=== PATIENT | female | born 1990 | race Caucasian/White ===

== ENCOUNTER → 2016-08-04 | Outpatient (CLI) | payer OTHER ==
[2016-08-04 14:10] LABS: MEAN CORPUSCULAR HGB CONC 34.9 g/dl (32.0-36.5); MEAN CORPUSCULAR VOLUME 88.8 fl (80.0-96.0); RED CELL DISTRIBUTION WIDTH 13.2 % (11.5-14.5); WHITE BLOOD COUNT 10.6 K/mm3 (4.0-10.0)
== END ==
LOC: M LAB 12:05
PROVIDERS: ATTEND Advanced Practice Midwife
DX: Z34.82 Encounter for supervision of other normal pregnancy, second trimester (principal)

== ENCOUNTER → 2016-08-10 | Outpatient (CLI) | payer OTHER | LOC: M LAB 08:09 | PROVIDERS: ATTEND Advanced Practice Midwife | DX: R73.02 Impaired glucose tolerance (oral) (principal) ==

== ENCOUNTER → 2016-10-20 | Outpatient (REF) | payer OTHER | LOC: M LAB REF 17:04 | PROVIDERS: ATTEND Advanced Practice Midwife | DX: Z34.83 Encounter for supervision of other normal pregnancy, third trimester (principal) ==

== ENCOUNTER 2016-11-14 20:07 | Inpatient (IN) | payer OTHER ==
[~2016-11-14] VITALS: Ht 157.5 cm; Wt 87.0 kg
[2016-11-14] VITALS (7 sets, daily range): BP systolic 130–144; BP diastolic 79–94
[2016-11-14] MEDS ORDERED: LR 1,000 ML IV SCH (21:05)
[2016-11-14 21:41] LABS: MEAN CORPUSCULAR HGB CONC 34.4 g/dl (32.0-36.5); MEAN CORPUSCULAR VOLUME 87.1 fl (80.0-96.0); RED CELL DISTRIBUTION WIDTH 13.8 % (11.5-14.5); WHITE BLOOD COUNT 15.8 K/mm3 (4.0-10.0)
[2016-11-14 22:32] LABS: ALT/SGPT 27 U/L (12-78); AST/SGOT 18 U/L (15-37); BILIRUBIN,TOTAL 0.2 MG/DL (0.2-1.0); CREATININE FOR GFR 0.66 MG/DL (0.55-1.02); GLOMERULAR FILTRATION RATE > 60.0 (>60); URIC ACID 6.2 MG/DL (2.6-6.0)
[2016-11-14] MEDS ORDERED: BUTORPHANOL 2 MG/ML INJ (J0595) As Ordered ONE (23:10)
[2016-11-14] MEDS ORDERED: BUTORPHANOL 2 MG/ML INJ (J0595) IV ONE (23:15)
[2016-11-14] MEDS ORDERED: PROMETHAZINE INJ 25 MG/ML VIAL (J2550) IV ONE (23:15)
[2016-11-15] VITALS (48 sets, daily range): BP systolic 108–147; BP diastolic 55–95
[2016-11-15] MEDS ORDERED: FENTANYL 2MCG/ML ROPIVACAINE 0.2% IN 0.9% NACL 200ML IVBAG As Ordered ONE (00:19)
[2016-11-15] MEDS ORDERED: diphenhydrAMINE INJ 50MG/ML VIAL (J1200) IV PRN (01:12)
[2016-11-15] MEDS ORDERED: ePHEDrine SULFATE 25 MG/5 ML(5MG/ML) SYRINGE IV PRN (01:12)
[2016-11-15] MEDS ORDERED: FENTANYL/ROPIVACAINE/NACL BAG 200 ML EPIDURAL SCH (01:12)
[2016-11-15] MEDS ORDERED: NALOXONE INJ 0.4 MG/1 ML VIAL (J2310) IV PRN (01:12)
[2016-11-15] MEDS ORDERED: LACTATED RINGER'S 1000 ML IV PRN (01:12)
[2016-11-15] MEDS ORDERED: ONDANSETRON 4MG/2ML VIAL (J2405) IV PRN (01:12)
[2016-11-15] MEDS ORDERED: EPIDURAL COMMENT XX SCH (01:12)
[2016-11-15] MEDS ORDERED: EPIDURAL/PCA KEYS XX PRN (01:12)
[2016-11-15] MEDS ORDERED: REFRIGERATOR IV KEYS XX PRN (01:12)
[2016-11-15] MEDS ORDERED: OXYTOCIN 30 UNITS IN 0.9% NaCl 500ML IV BAG (J2590) As Ordered ONE (01:59)
--- NOTE | 2016-11-15 05:53 | HPE ---
DATE OF ADMISSION: 11/14/2016 REASON FOR ADMISSION: Labor. HISTORY OF PRESENT ILLNESS: Mrs. Cadena is a 26-year-old 1 who presents at 39 weeks and 3 days estimated gestational age by last menstrual period, confirmed by first-trimester ultrasound, with complaints of contractions. She reports contractions throughout the day, but have now increased in intensity and frequency. She was examined earlier today where she was found on exam to be 1 cm dilated, 80% effaced, -2 station. She was sent home and she rested, at which time she returned after contractions became less than five minutes apart for longer than two hours. She reports active movements. Denies any vaginal bleeding or leakage of fluid. Her course has been unremarkable. She initiated care in her first trimester and has been appropriate throughout. PAST MEDICAL HISTORY: None. PAST SURGICAL HISTORY: None. PAST OBSTETRICAL HISTORY: 1. MEDICATIONS: vitamins. ALLERGIES: She has no known drug allergies. SOCIAL HISTORY: Denies any alcohol, tobacco or drug use during her . PHYSICAL EXAMINATION: She has mildly elevated blood pressures, 140s over 90s, with serial repeats. She is afebrile. She has category one heart rate tracing with regular pattern contractions. GENERAL APPEARANCE: No acute distress. Appears uncomfortable with contractions. LUNGS: Clear to auscultation bilaterally. CARDIOVASCULAR: Heart regular rate and rhythm. ABDOMEN: Gravid, nontender. Estimated weight (EFW) 3600 grams. CERVICAL EXAM: She was 4 cm dilated, 90% effaced, -1 station. NEUROLOGIC: She was grossly intact. LABORATORY DATA: Her blood type is A positive. Antibody screen is negative. Rubella immune. RPR nonreactive. Hepatitis surface antigen is negative. HIV is negative. Hepatitis C is nonreactive. Chlamydia and gonorrhea screens negative. She had an elevated one-hour Glucola with a normal glucose tolerance test. She is GBS negative. ASSESSMENT: 1. This patient is a 26-year-old one at 39 weeks 3 days estimated gestational age by last menstrual period confirmed by first-trimester ultrasound in active labor. 2. Reassuring status. 3. Elevated blood pressures, concerning for gestational hypertension versus preeclampsia. PLAN: 1. Admit to labor and delivery. Complete blood count (CBC), rapid plasma reagin (RPR), type and screen. Preeclamptic panel. 2. The patient has been thoroughly counseled in regards to her diagnosis. I discussed admission as well as augmentation of her labor. I have also v erbally consented her for emergency surgery, blood products, anesthesia. She desires to proceed with admission. 3. The patient is a good candidate for an epidural. [place]
[2016-11-15] MEDS ORDERED: OXYTOCIN DRIP 30 UNITS in APPROPRIATE DILUENT 1 EA IV SCH (06:04)
[2016-11-15] MEDS ORDERED: RHOGAM 300 MCG (1500 IU) INJ (J2790) IM SCH (06:15)
[2016-11-15] MEDS ORDERED: IBUPROFEN 800 MG TAB PO PRN (06:15)
[2016-11-15] MEDS ORDERED: MEASLES,MUMPS,RUBELLA VACCINE INJ (MMR-II) (90707) SC SCH (06:15)
[2016-11-15] MEDS ORDERED: DIBUCAINE 1% OINTMENT 30GM TOP PRN (06:15)
[2016-11-15] MEDS ORDERED: DOCUSATE SODIUM 100 MG CAP PO PRN (06:15)
[2016-11-15] MEDS ORDERED: MOM 30ML SUSPENSION UDC PO PRN (06:15)
[2016-11-15] MEDS ORDERED: ANUSOL HC CREAM 30GM TOP PRN (06:15)
[2016-11-15] MEDS ORDERED: ACETAMINOPHEN 500 MG TAB PO PRN (06:15)
[2016-11-15] MEDS ORDERED: METHYLERGONOVINE MALEATE 0.2 MG TAB PO PRN (06:15)
--- NOTE | 2016-11-15 06:27 | DN ---
DATE: 11/15/2016 TIME OF : 0535. GENDER: Female. SCORES: 9 and 9. WEIGHT: 3300 grams or 7 pounds 4 ounces. ANESTHESIA: Epidural. LACERATIONS: First-degree midline laceration. COUNTS: Five laparotomy sponges accounted for prior to an after delivery. One sharp removed from the delivery field. DELIVERY NOTE: On November 15, 2016, Mrs. Cadena, a 26-year-old 1, now para 1, had a spontaneous vaginal delivery of a live-born female , scores of 9 and 9. Weight was 7 pounds 4 ounces or 3300 grams. Head was delivered occiput anterior (OA), followed by delivery of right anterior shoulder, left posterior shoulder and corpus. Infant was then handed to mom with a good cry. Cord was clamped times two, was cut by the father of the baby under my direction. Cord blood was obtained. Placenta was drained and delivered grossly intact. A premixed bag of 500 mL of normal saline with 30 units of Pitocin was then bolused, along with uterine massage. The uterus was firm. On inspection, there was a first-degree midline laceration which was repaired with 3-0 Vicryl Rapide. On re-inspection, cervix, vagina and perineum were grossly intact and hemostatic. Mom and baby to recovery in stable condition. The couple has decided to name their daughter [place].
[2016-11-15] MEDS: PRENATAL VITAMIN TAB PO SCH (08:42)
[2016-11-16 06:17] VITALS: BP 122/79
[2016-11-16] MEDS: PRENATAL VITAMIN TAB PO SCH (08:28)
[2016-11-16 18:00] VITALS: BP 126/85
[2016-11-17 06:21] VITALS: BP 123/87
[2016-11-17] MEDS: PRENATAL VITAMIN TAB PO SCH (08:02)
[2016-11-17] MEDS ORDERED: ACET50TA PO (08:08)
[2016-11-17] MEDS ORDERED: IBUP-1114 PO (08:08)
[2016-11-17] MEDS ORDERED: PRENTAB9 PO (08:08)
== END 2016-11-17 10:30 | disposition home or self-care (01) | DRG 775 ==
LOC: M LDO 20:07 → M LDI 21:24 → M OBS 11-15 09:13
PROVIDERS: ADMIT Obstetrics & Gynecology; ATTEND Obstetrics & Gynecology
PROC: 10E0XZZ Delivery of Products of Conception, External Approach (ICD-10-PCS; principal; 2016-11-15)
PROC: 0HQ9XZZ Repair Perineum Skin, External Approach (ICD-10-PCS; 2016-11-15)
DX: O13.4 Gestational [pregnancy-induced] hypertension without significant proteinuria, complicating childbirth (principal); Z37.0 Single live birth; Z3A.39 39 weeks gestation of pregnancy; Z79.899 Other long term (current) drug therapy; O70.0 First degree perineal laceration during delivery

== ENCOUNTER → 2017-09-03 | Outpatient (REF) | payer OTHER ==
[2017-09-03 11:29] LABS: BASO % 0.4 % (0.0-1.0); EOS # 0.1 10^3/uL (0.0-0.50); EOS % 2.5 % (0.0-3.0); HEMATOCRIT 39.3 % (36.0-47.0); HEMOGLOBIN 13.5 g/dl (12.0-15.5); IMMATURE GRANULOCYTE % 0.2 % (0-3.0); LYMPH % 36.3 % (24.0-44.0); MEAN CORPUSCULAR HEMOGLOBIN 29.4 pg (27.0-33.0); MEAN CORPUSCULAR HGB CONC 34.4 g/dl (32.0-36.5); MEAN CORPUSCULAR VOLUME 85.6 fl (80.0-96.0); MONO # 0.4 10^3/uL (0.0-0.8); MONO % 7.2 % (0.0-5.0); NEUTROPHILS % 53.4 % (36.0-66.0); PLATELET COUNT, AUTOMATED 266 10^3/uL (150-450); RED BLOOD COUNT 4.59 10^6/uL (4.00-5.40); RED CELL DISTRIBUTION WIDTH 12.9 % (11.5-14.5); WHITE BLOOD COUNT 5.6 10^3/uL (4.0-10.0)
[2017-09-03 11:48] LABS: FOLLICLE STIMULATING HORMONE 6.2 mIU/mL; LUTEINIZING HORMONE 9.7 mIU/mL; TOTAL 25(OH) VITAMIN D 20.7 NG/ML (30.0-100.0)
[2017-09-03 12:26] LABS: ALKALINE PHOSPHATASE 89 U/L (45-117); ALT/SGPT 16 U/L (12-78); ANION GAP 6 MEQ/L (8-16); AST/SGOT 9 U/L (7-37); BILIRUBIN,TOTAL 0.6 MG/DL (0.2-1.0); BLOOD UREA NITROGEN 12 MG/DL (7-18); CALCIUM LEVEL 8.8 MG/DL (8.5-10.1); CARBON DIOXIDE LEVEL 26 MEQ/L (21-32); CHLORIDE LEVEL 108 MEQ/L (98-107); CHOLESTEROL LEVEL 123 MG/DL (<200); GLOMERULAR FILTRATION RATE > 60.0 (>60); GLUCOSE, FASTING 87 MG/DL (70-100); HDL CHOLESTEROL 44 MG/DL (>40); SODIUM LEVEL 140 MEQ/L (136-145); TRIGLYCERIDES LEVEL 53 MG/DL (<150)
[2017-09-03 12:27] LABS: ALBUMIN 3.9 GM/DL (3.2-5.2); ALBUMIN/GLOBULIN RATIO 0.98 (1.00-1.93); CHOLESTEROL RISK RATIO 2.795 (<5); LDL CHOLESTEROL 68.4 MG/DL (<100); NON-HDL-C 79 MG/DL; TOTAL PROTEIN 7.9 GM/DL (6.4-8.2)
== END ==
LOC: M LABDRAW1 10:04
DX: R53.83 Other fatigue (principal)
CPT/HCPCS: 83001

== ENCOUNTER → 2018-04-12 | Outpatient (CLI) | payer OTHER | LOC: M RAD 13:28 | DX: O30.1 Triplet pregnancy (principal); Z3A.21 21 weeks gestation of pregnancy; O32.1XX2 Maternal care for breech presentation, fetus 2 | CPT/HCPCS: 76811 ==

== ENCOUNTER → 2018-04-29 | Outpatient (CLI) | payer OTHER | LOC: M RAD 13:30 | DX: O30.1 Triplet pregnancy (principal); Z3A.24 24 weeks gestation of pregnancy; Z3A.23 23 weeks gestation of pregnancy | CPT/HCPCS: 76816 ==

== ENCOUNTER → 2018-05-10 | Outpatient (CLI) | payer OTHER | LOC: M RAD 13:50 | DX: O30.112 Triplet pregnancy with two or more monochorionic fetuses, second trimester (principal); Z3A.25 25 weeks gestation of pregnancy; O32 Maternal care for malpresentation of fetus | CPT/HCPCS: 76816 ==

== ENCOUNTER → 2018-05-20 | Outpatient (CLI) | payer OTHER ==
[~2018-05-20] MED LIST: IBUP-1114 PO; MAPA500T17 PO; PRENTAB9 PO
[2018-05-20 10:17] LABS: BASO % 0.3 % (0.0-1.0); EOS # 0.1 10^3/uL (0.0-0.50); EOS % 1.3 % (0.0-3.0); HEMATOCRIT 33.2 % (36.0-47.0); HEMOGLOBIN 11.1 g/dl (12.0-15.5); LYMPH # 1.3 10^3/uL (1.5-6.5); LYMPH % 16.5 % (24.0-44.0); MEAN CORPUSCULAR HEMOGLOBIN 30.7 pg (27.0-33.0); MEAN CORPUSCULAR HGB CONC 33.4 g/dl (32.0-36.5); MEAN CORPUSCULAR VOLUME 91.7 fl (80.0-96.0); MONO # 0.5 10^3/uL (0.0-0.8); MONO % 5.8 % (0.0-5.0); NEUTROPHILS % 75.1 % (36.0-66.0); PLATELET COUNT, AUTOMATED 171 10^3/uL (150-450); RED BLOOD COUNT 3.62 10^6/uL (4.00-5.40)
== END ==
LOC: M LAB 08:40
PROVIDERS: ATTEND Specialist
DX: O30.122 Triplet pregnancy with two or more monoamniotic fetuses, second trimester (principal); Z3A.00 Weeks of gestation of pregnancy not specified

== ENCOUNTER → 2018-05-21 | Outpatient (CLI) | payer OTHER | LOC: M LAB 07:16 | PROVIDERS: ATTEND Specialist | DX: O30.122 Triplet pregnancy with two or more monoamniotic fetuses, second trimester (principal); Z3A.00 Weeks of gestation of pregnancy not specified ==

== ENCOUNTER → 2018-05-24 | Outpatient (CLI) | payer OTHER ==
[~2018-05-24] MED LIST changes: -MAPA500T17 PO; +MAPA500T2 PO
--- NOTE | 2018-05-24 15:47 | REP ---
Clinical: Triplet gestation. Growth evaluation Comparison: 05/10/2018. Findings: Examination demonstrates presumed to trichorionic triamniotic triplet gestation. Cervix measures 3.5 cm in length and appears closed. Concordant growth is noted. Gestational age by LMP at 27 weeks 5 days with estimated date of delivery 08/18/2018 . BABY A: Baby A identified in transverse (head to maternal left) presentation along the maternal left lower uterine position. Placenta is noted anterior and grade grade 1 without evidence for placenta previa or abruption. motion is appreciated. Amniotic fluid volume is normal and the deepest pocket measures 5.0 cm. FHR equals 134 beats per minute. BPD 7.2 cm 28 weeks 6 days HC 25.3 cm 27 weeks 3 days AC 24.0 cm 28 weeks 2 days FL 5.1 cm 27 weeks 2 days HL 4.6 cm 27 weeks 2 days HC/AC ratio 1.05 Umbilical cord SD ratio: 4.37 (4.10 - 4.90) Gestational age by current measurements: 27 weeks 6 days . Estimated weight 1147 grams ( 47 percentile). Limited anatomical assessment without obvious abnormality. ------- TWIN B: Twin B identified in breech presentation along the maternal right side. Placenta is noted right lateral and grade grade 1 without evidence for placenta previa or abruption. motion is appreciated. Amniotic fluid volume is normal and the deepest pocket measures 6.1 cm. FHR equals 149 beats per minute. BPD 7.0 cm 28 weeks 1 day HC 25.5 cm 27 weeks 5 days AC 24.3 cm 28 weeks 4 days FL 5.4 cm 28 weeks 4 days HL 5.0 cm 29 weeks 2 days HC/AC ratio 1.05 Umbilical cord SD ratio: 4.32 (4.10 - 4.90) Gestational age by current measurements: 28 weeks 3 days . Estimated weight 1230 grams ( 61st percentile). Limited anatomical assessment without obvious abnormality. ------- BABY C: Baby C identified in transverse (head to maternal left) presentation along the maternal left fundal side. Placenta is noted anterior and grade grade 1 without evidence for placenta previa or abruption. motion is appreciated. Amniotic fluid volume is normal and the deepest pocket measures 7.0 cm. FHR equals 151 beats per minute. BPD 7.4 cm 29 weeks 5 days HC 25.8 cm 28 weeks 0 days AC 23.5 cm 27 weeks 6 days FL 5.4 cm 28 weeks 4 days HL 4.7 cm 27 weeks 5 days HC/AC ratio 1.10 Umbilical cord SD ratio: 4.71 (4.10 - 4.90) Gestational age by current measurements: 20 weeks 3 days . Estimated weight 1194 grams ( 55th percentile). Limited anatomical assessment without obvious abnormality. Impression: Triplet gestation demonstrating appropriate concordant growth. No gross abnormalities are identified. Electronically Signed by Miki Stone MD 05/24/2018 03:38 P
== END ==
LOC: M RAD 13:28
PROVIDERS: ATTEND Obstetrics & Gynecology
DX: O30.122 Triplet pregnancy with two or more monoamniotic fetuses, second trimester (principal)

== ENCOUNTER → 2018-06-10 | Outpatient (CLI) | payer OTHER ==
--- NOTE | 2018-06-11 04:06 | REP ---
Clinical: Triplet gestation. well-being Comparison: 05/24/2018 . Findings: Examination demonstrates presumed trichorionic triamniotic triplet gestation. Cervix measures 4.4 cm in length and appears closed. Gestational age by LMP at 30 weeks 1 day with estimated date of delivery 08/18/2018 . TWIN A: Twin A identified in cephalic presentation along the maternal left lower uterine side. Placenta is noted anterior and grade 1 without evidence for placenta previa or abruption. motion is appreciated. Amniotic fluid volume is normal and the deepest pocket measures 4.3 cm. FHR equals 150 beats per minute. BPP equals 8/8 Umbilical cord SD ratio: 3.62 (3.30 - 4.70) ------- TWIN B: Twin B identified in breech presentation along the maternal right side. Placenta is noted right lateral / posterior and grade 1 without evidence for placenta previa or abruption. motion is appreciated. Amniotic fluid volume is normal and the deepest pocket measures 4.2 cm. FHR equals 152 beats per minute. BPP equals 8/8 Umbilical cord SD ratio: 2.85 ( 3.30 - 4.70 ) ------- TWIN C: Twin C identified in oblique presentation along the maternal right side. Placenta is noted anterior and grade 1 without evidence for placenta previa or abruption. motion is appreciated. Amniotic fluid volume is normal and the deepest pocket measures 6.1 cm. FHR equals 153 beats per minute. BPP equals 8/8 Umbilical cord SD ratio: 5.61 (3.30 - 4.70) Impression: Triplet gestation. Findings as detailed above. Electronically Signed by Miki Stone MD 06/11/2018 03:57 A
== END ==
LOC: M RAD 13:26
PROVIDERS: ATTEND Obstetrics & Gynecology
DX: Z36.9 Encounter for antenatal screening, unspecified (principal); O30.1 Triplet pregnancy; Z3A.30 30 weeks gestation of pregnancy

== ENCOUNTER → 2018-06-20 | Outpatient (REF) | payer OTHER | LOC: M LAB REF 12:56 | PROVIDERS: ATTEND Obstetrics & Gynecology | DX: O30.133 Triplet pregnancy, trichorionic/triamniotic, third trimester (principal) ==

== ENCOUNTER → 2018-07-05 | Outpatient (CLI) | payer OTHER ==
[2018-07-05 21:43] LABS: TOTAL PROTEIN,RANDOM URINE 48.8 MG/DL (0.0-12.0)
[2018-07-05 21:44] LABS: ALT/SGPT 12 U/L (12-78); BILIRUBIN,TOTAL 0.2 MG/DL (0.2-1.0); GLOMERULAR FILTRATION RATE > 60.0 (>60); LDH LACTATE DEHYDROGENASE 249 U/L (84-246); URIC ACID 7.2 MG/DL (2.6-6.0)
== END ==
LOC: M LAB 20:44
PROVIDERS: ATTEND Obstetrics & Gynecology
DX: O30.133 Triplet pregnancy, trichorionic/triamniotic, third trimester (principal); O16.3 Unspecified maternal hypertension, third trimester; Z3A.00 Weeks of gestation of pregnancy not specified

== ENCOUNTER 2018-07-14 15:02 | Outpatient (CLI) | payer OTHER ==
[~2018-07-14] VITALS: Ht 160 cm; Wt 98.0 kg
[2018-07-14] MEDS ORDERED: BETAMETHASONE SOLUSPAN 6MG/ML INJ 5ML (J0702) IM ONE (15:15)
[2018-07-14 15:19] VITALS: BP 135/85
[2018-07-15] MEDS ORDERED: TUMS500C PO (15:56)
--- NOTE | 2018-07-16 13:34 | NUR ---
L&D Traige Note DOS 07/14/18 -28yo with tri/tri twin gestation presents for betamethasone inject for lung mature. She will be delivered at 36wks via c/s for triplets and mild preeclampsia. vss and AF -after injection patient discharged home with PTL and preeclampsia precautions. She will f/u tomorrow for 2nd dose of betamethasone. Jeanette Vazquez MD
== END 2018-07-14 15:40 | disposition home or self-care (01) ==
LOC: M LDO 15:02
PROVIDERS: ATTEND Obstetrics & Gynecology
DX: O30.113 Triplet pregnancy with two or more monochorionic fetuses, third trimester (principal); O14.93 Unspecified pre-eclampsia, third trimester; Z3A.36 36 weeks gestation of pregnancy
CPT/HCPCS: 96372; G0378; J0702

== ENCOUNTER 2018-07-15 15:48 | Outpatient (CLI) | payer OTHER ==
[~2018-07-15] VITALS: Ht 160 cm; Wt 99.2 kg
[2018-07-15] MEDS ORDERED: TUMS500C PO (15:56)
[2018-07-15] MEDS ORDERED: BETAMETHASONE SOLUSPAN 6MG/ML INJ 5ML (J0702) IM ONE (16:00)
[2018-07-15 16:54] VITALS: BP 142/85
[2018-07-15 17:04] VITALS: BP 142/85
[2018-07-15 17:11] VITALS: BP 144/94
[2018-07-15 17:21] VITALS: BP 134/87
[2018-07-15 17:31] VITALS: BP 138/88
--- NOTE | 2018-07-15 17:31 | IPNPDOC ---
Text Note Date of Service The patient was seen on 07/15/18. NOTE Subjective: Patient is a 28-year-old female who presents to L&D for her 2nd dose of betamethasone. We are doing shared care with the center for this patient. The [facility] is planning on doing a section next Sunday. She reports active movement. She denies leaking of fluid, preeclamptic signs/symptoms (headache, nausea, visual changes, or epigastric pain) or vaginal bleeding. She reports occasional ansley campbell contractions. Objective: VS: see below; BPP: see below. A+O x3; Respiratory: regular rate, no use of accessory muscles; Abdomen: gravid; bilateral lower extremities with minimal swelling-generalized edema. Assessment: trichorionic triple gestation; GHTN; betamethosone complete. Plan: Dr. Leavitt consulted on plan of care. Patient to get her second dose of betamethasone today. BPP ordered and completed. Reviewed BPP of 6/8 for Twin A: 0/2 of for breathing. No changes in plan of care. Patient had a lab order from [facility] that they desire to have drawn before her visit on and they were drawn while she was present in hospital. Patient has an appointment on at the [facility]. Education done on preeclampsia. Encouraged to call with any of these signs or symptoms. Reviewed access to care, kick counts, labor signs and danger signs to report. Patient discharged to home. 1949: Received lab results. Reported to Dr. Lynn at [facility]. He will review her chart and notify front end architect with recommendation. At the least the patient will be seen tomorrow at the [facility]. Dr. Leavitt aware. 2046: Received message from Dr. Lynn that given that the patient has had proteinuria since 06/27/18 and is without symptoms that it is appropriate to see the patient at the [facility] in the morning for potential admission and delivery given that she is 35 weeks with triplets and has preeclampsia. Dr. Leavitt notified of Dr. Lynn's recommendation. Will call [facility] in the morning to make sure that Dr. Alcantara, who will be taking over in the morning, is aware of changes in her labs. VS,Fishbone, I+O VS, Fishbone, I+O Vital Signs Date Time Temp Pulse Resp B/P (MAP) Pulse Ox O2 Delivery O2 Flow Rate FiO2 07/15/18 17:04 98.2 92 18 142/85 (104) Vital Signs Label Value Date Time Pulse 100 07/15/18 1731 Respiratory Rate 18 bpm 07/15/18 1731 Blood Pressure Assessment 138/88 (105) 07/15/18 1731 Source Automatic Cuff (NIBP) Vital Signs Label Value Date Time Pulse 94 07/15/18 1721 Blood Pressure Assessment 134/87 (103) 07/15/18 1721 Source Automatic Cuff (NIBP) Vital Signs Label Value Date Time Pulse 96 07/15/18 1711 Blood Pressure Assessment 144/94 (111) 07/15/18 1711 Source Automatic Cuff (NIBP) BLANCA NICHOLAS CNM Jul 15, 2018 17:31
[2018-07-15 18:13] LABS: HEMATOCRIT 30.9 % (36.0-47.0); HEMOGLOBIN 9.9 g/dl (12.0-15.5); MEAN CORPUSCULAR HEMOGLOBIN 25.8 pg (27.0-33.0); MEAN CORPUSCULAR VOLUME 80.7 fl (80.0-96.0); PLATELET COUNT, AUTOMATED 224 10^3/uL (150-450); RED BLOOD COUNT 3.83 10^6/uL (4.00-5.40); WHITE BLOOD COUNT 9.6 10^3/uL (4.0-10.0)
[2018-07-15 18:33] LABS: ALT/SGPT 9 U/L (12-78); BILIRUBIN,TOTAL 0.2 MG/DL (0.2-1.0); CREATININE FOR GFR 0.71 MG/DL (0.55-1.30); GLOMERULAR FILTRATION RATE > 60.0 (>60); LDH LACTATE DEHYDROGENASE 242 U/L (84-246); URIC ACID 7.1 MG/DL (2.6-6.0)
[2018-07-15 19:28] LABS: TOTAL PROTEIN,RANDOM URINE 179.1 MG/DL (0.0-12.0)
--- NOTE | 2018-07-15 21:10 | REP ---
TRIPLET OB ULTRASOUND, BIOPHYSICAL PROFILE: Real-time sonographic evaluation of the gravid uterus is performed. There is a living presumed tri-chorionic, tri-amniotic triplet gestation. Placenta for fetus A and C are anterior and grade 2 with no previa or abruption and for fetus B on the right posterolateral and grade 2. FETUS A: heart rate 137 beats per minute. Amniotic fluid appears within normal limits with the deepest pocket of fluid 6 cm. Biophysical profile score is 6/8 with no points for breathing. SD ratio 2.14 within normal range of 2.0-3.0. RI 0.53 is slightly below normal range of 0.59 to 0.75. position is breech on the maternal left side on the lower uterine segment. FETUS B: heart rate 160 beats per minute. Amniotic fluid within normal limits with the deepest pocket of fluid 5.5 cm. Biophysical profile score is 8/8. SD ratio 3.18 within normal range of 2.0-3.0. RI 0.69 within normal range. position is breech on the maternal right side. FETUS C: heart rate 124 beats per minute. Amniotic fluid within normal limits with the deepest pocket of fluid 5.1 cm. Biophysical profile score is 8/8. SD ratio 3.77 and RI 0.73 within normal range. position is transverse with head to the maternal right side. Electronically Signed by Micah Mcneill MD 07/16/2018 10:35 A
== END 2018-07-15 18:00 | disposition home or self-care (01) ==
LOC: M LDO 15:48
PROVIDERS: ATTEND Advanced Practice Midwife
DX: O30.133 Triplet pregnancy, trichorionic/triamniotic, third trimester (principal); O14.93 Unspecified pre-eclampsia, third trimester; Z3A.35 35 weeks gestation of pregnancy
CPT/HCPCS: 36415; 59025; 76815; 76819; 76820; 82247; 82565; 82570; 83615; 84156; 84450; 84460; 84550; 85027; G0378; G0463; J0702

== ENCOUNTER → 2018-07-16 | Outpatient (CLI) | payer OTHER ==
[~2018-07-16] MED LIST changes: +TUMS500C PO
--- NOTE | 2018-07-16 14:59 | REP ---
OB ULTRASOUND, BIOPHYSICAL PROFILE, TRIPLET GESTATION: Real-time sonographic evaluation of the gravid uterus is performed. There is a presumed triamniotic trichorionic triplet gestation, placentas for fetus A and C anterior and grade 2 and for fetus B posterolateral on the right and grade 2 with no previa or abruption. Estimated gestational age is 35 weeks 2 days, EDC 08/18/2018. Fetus A: heart rate 155 beats per minute. Amniotic fluid within normal limits with deepest pocket of fluid 9.1 cm. Biophysical profile score 8/8. S/D ratio 1.96 slightly below normal range of 2.0 to 3.0 and RI 0.49 below normal range of 0.59 to 0.75. position breech on the maternal left in the lower uterine segment. Fetus B: heart rate 152 beats per minute. Amniotic fluid within normal limits with deepest pocket of fluid 6.9 cm. Biophysical profile score 8/8. S/D ratio 2.93 within normal range of 2.0 to 3.0, RI 0.66 within normal range of 0.59 to 0.75. position is breech on the maternal right on the maternal right side. Fetus C: heart rate 153 beats per minute. Amniotic fluid within normal limits with deepest pocket of fluid 7.4 cm. Biophysical profile score 8/8. S/D ratio 3.39 within normal range of 3.0 to 4.0. RI 0.70 within normal range of 0.63 to 0.79. position is transverse with head towards the maternal right side. Electronically Signed by Micah Mcneill MD 07/16/2018 05:31 P
== END ==
LOC: M RAD 13:20
PROVIDERS: ATTEND Obstetrics & Gynecology
DX: O30.133 Triplet pregnancy, trichorionic/triamniotic, third trimester (principal); O16.3 Unspecified maternal hypertension, third trimester; Z3A.35 35 weeks gestation of pregnancy

== ENCOUNTER → 2019-07-31 | Outpatient (REF) | payer OTHER | LOC: M SFHCWAGY 13:15 | PROVIDERS: ATTEND Obstetrics & Gynecology | DX: Z12.4 Encounter for screening for malignant neoplasm of cervix (principal) ==

== ENCOUNTER 2023-01-04 11:19 | Day surgery (SDC) | payer BC ==
[~2023-01-04] VITALS: Ht 160 cm; Wt 82.9 kg
[~2023-01-04 11:19] MED LIST changes: +ACETAMINOPHEN 1000MG 100ML IV BAG As Ordered ONE; +HYDROmorphone HCL 2MG/ML 1ML VIAL As Ordered ONE; +KETOROLAC 60MG 2ML VIAL As Ordered ONE; +LIDOCAINE 2% 100MG/5ML SDV (FOR ANES.) As Ordered ONE; +LR 1,000 ML IV SCH; +METOCLOPRAMIDE INJ 10MG/2ML VIAL As Ordered ONE; +MIDAZOLAM INJ 2MG/2ML VIAL As Ordered ONE; +ONDANSETRON 4MG 2ML VIAL As Ordered ONE; +ROCURONIUM BROMIDE 50MG/5ML VIAL As Ordered ONE; +SUGAMMADEX SODIUM 500 MG/5 ML VIAL (BRIDION) As Ordered ONE; +fentaNYL 100 MCG/2 ML INJECTION As Ordered ONE; +propofoL 200 MG/20 ML VIAL As Ordered ONE
[2023-01-04] MEDS ORDERED: LR 1,000 ML IV SCH ×2 (11:40→15:00)
[2023-01-04 11:48] LABS: HEMOGLOBIN 13.6 g/dl (12.0-15.5); MEAN CORPUSCULAR HEMOGLOBIN 29.4 pg (27.0-33.0); MEAN CORPUSCULAR HGB CONC 33.2 g/dl (32.0-36.5); MEAN CORPUSCULAR VOLUME 88.6 fl (80.0-96.0); PLATELET COUNT, AUTOMATED 282 10^3/uL (150-450); RED BLOOD COUNT 4.63 10^6/uL (4.00-5.40); WHITE BLOOD COUNT 6.3 10^3/uL (4.0-10.0)
[2023-01-04] MEDS ORDERED: SILVER NITRATE APPLICATOR (1 = QTY 10) As Ordered ONE (12:33)
[2023-01-04 12:39] LABS: HCG, SERUM QUALITATIVE NEGATIVE (NEGATIVE)
[2023-01-04] MEDS ORDERED: ONDANSETRON 4MG 2ML VIAL IV PRN (15:00)
[2023-01-04] MEDS ORDERED: HYDROMORPHONE HCL 0.5 MG/ 0.5 ML SYRINGE IV PRN (15:00)
[2023-01-04] MEDS ORDERED: oxyCODONE 5MG TAB PO PRN (15:00)
[2023-01-04] MEDS ORDERED: fentaNYL 100 MCG/2 ML INJECTION IV PRN (15:00)
[2023-01-04] MEDS ORDERED: OXYC1TAB23 PO (15:13)
[2023-01-04] MEDS ORDERED: COLA100C5 PO (15:17)
[2023-01-04] MEDS ORDERED: IBUP80TA PO (15:17)
[2023-01-04 15:55] VITALS: BP 112/70; TEMP 98; O2SAT 98
[2023-01-04] MEDS ORDERED: diphenhydrAMINE 50MG/ML VIAL IV PRN (16:50)
== END 2023-01-04 17:28 | disposition home or self-care (01) ==
LOC: M SDC 11:19
PROVIDERS: ATTEND Obstetrics & Gynecology
DX: Z30.2 Encounter for sterilization (principal)
CPT/HCPCS: 11982; 36415; 58661; 84703; 85027; 86850; 86900; 86901; 88302; J0131; J0665; J1100; J1170; J1200; J1885; J2250; J2405; J2765; J3010

== ENCOUNTER → 2023-08-01 | Outpatient (REF) | payer BC ==
[~2023-08-01] MED LIST changes: -ACETAMINOPHEN 1000MG 100ML IV BAG As Ordered ONE; +COLA100C5 PO; -HYDROmorphone HCL 2MG/ML 1ML VIAL As Ordered ONE; +IBUP80TA PO; -KETOROLAC 60MG 2ML VIAL As Ordered ONE; -LIDOCAINE 2% 100MG/5ML SDV (FOR ANES.) As Ordered ONE; -LR 1,000 ML IV SCH; -METOCLOPRAMIDE INJ 10MG/2ML VIAL As Ordered ONE; -MIDAZOLAM INJ 2MG/2ML VIAL As Ordered ONE; -ONDANSETRON 4MG 2ML VIAL As Ordered ONE; +OXYC1TAB23 PO; -ROCURONIUM BROMIDE 50MG/5ML VIAL As Ordered ONE; -SUGAMMADEX SODIUM 500 MG/5 ML VIAL (BRIDION) As Ordered ONE; -fentaNYL 100 MCG/2 ML INJECTION As Ordered ONE; -propofoL 200 MG/20 ML VIAL As Ordered ONE
== END ==
LOC: M SFHCWAGY 10:06
PROVIDERS: ATTEND Obstetrics & Gynecology
DX: Z12.4 Encounter for screening for malignant neoplasm of cervix (principal)
CPT/HCPCS: 87624; G0123